=== PATIENT | female | born 1990 | race Caucasian/White ===

== ENCOUNTER 2017-01-21 13:33 | Emergency (ER) | payer MEDICARE, OTHER ==
[~2017-01-21] VITALS: Ht 162.6 cm; Wt 54.4 kg
[~2017-01-21 13:33] MED LIST: ALPR1TAB2 PO
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
[2017-01-21 14:12] LABS: BASOPHILS # (AUTO) 0.1 /CMM (0.0-0.2); BASOPHILS % (AUTO) 0.7 % (0.0-2.0); EOSINOPHILS # (AUTO) 0.1 /CMM (0.0-0.7); EOSINOPHILS % (AUTO) 0.8 % (0.0-6.0); HEMATOCRIT 35 % (33-45); LYMPHOCYTES # (AUTO) 2.2 /CMM (0.8-4.8); LYMPHOCYTES % (AUTO) 20.4 % (20.0-44.0); MEAN CORPUSCULAR HEMOGLOBIN 32 PG (26.0-33.0); MEAN CORPUSCULAR HGB CONC 35 g/dl (31.0-36.0); MEAN CORPUSCULAR VOLUME 93 fL (82-100); MONOCYTES # (AUTO) 0.8 /CMM (0.1-1.30); MONOCYTES % (AUTO) 7.4 % (2.0-12.0); NEUTROPHILS # (AUTO) 7.4 /CMM (1.8-8.9); NEUTROPHILS % (AUTO) 70.7 % (43.0-81.0); PLATELET COUNT (AUTO) 256 /CMM (150-450); RDW COEFFICIENT OF VARIATION 13.3 (11.5-15.0); RED BLOOD CELL COUNT(AUTO) 3.72 MIL/uL (4.0-5.2); WHITE BLOOD COUNT (AUTO) 10.6 K/uL (4.3-11.0)
[2017-01-21 14:22] LABS: CALCIUM, SERUM 8.4 mg/dL (8.5-10.1); CARBON DIOXIDE 29 mmol/L (21-32); CHLORIDE 105 mmol/L (98-107); CREATININE 0.7 mg/dL (0.6-1.3); GLUCOSE 103 mg/dL (74-106); POTASSIUM 4.1 mmol/L (3.5-5.1); SODIUM SERUM 141 mmol/L (136-145); UREA NITROGEN, BLOOD 7 mg/dL (7-18)
[2017-01-21 14:25] LABS: INR 0.97 (0.87-1.13); PROTHROMBIN TIME 10.1 SECS (9.5-12.7)
--- NOTE | 2017-01-21 14:26 | NUR ---
PT COMBATIVE, REFUSING CT SCANS. DR. CASTILLO & DR. GARCIA ARE AWARE.
[2017-01-21 14:28] LABS: ALANINE AMINOTRANSFERASE 27 U/L (12-78); ALBUMIN 3.7 g/dL (3.4-5.0); ALCOHOL, BLOOD < 3 mg/dL (0-0); ALKALINE PHOSPHATASE 43 U/L (46-116); ASPARTATE AMINOTRANSFERASE 53 U/L (15-37); BILIRUBIN,TOTAL 0.2 mg/dL (0.2-1.0); TOTAL PROTEIN, SERUM 6.6 g/dL (6.4-8.2)
--- NOTE | 2017-01-21 14:29 | NUR ---
BECCA OFFICERS AT BS INTERVIEWING PT.
[2017-01-21] MEDS ORDERED: IV SET PRIMARY PUMP SET 1 EA INFUS.SET MC ONE (16:17)
[2017-01-21] MEDS ORDERED: IV NS 0.9% 1,000 ML ONE (16:17)
[2017-01-21] MEDS ORDERED: IV NS 0.9% 1,000 ML BAG IV ONE (16:30)
--- NOTE | 2017-01-21 16:30 | NUR ---
DR. CASTILLO AT BS AND UPDATED PT'S MOTHER FOR POC.
[2017-01-21] MEDS ORDERED: IV NS 0.9% 250 ML IV ONE (16:31)
[2017-01-21] MEDS ORDERED: CT SWABBABLE VALVE TRANS SET 1 EA INFUS.SET MC ONE (16:31)
[2017-01-21] MEDS ORDERED: IOHEXOL-350 100 ML VIAL IV ONE (16:31)
--- NOTE | 2017-01-21 16:44 | NUR ---
PT TAKEN TO CT.
--- NOTE | 2017-01-21 17:45 | NUR ---
IV removed. Catheter intact and site benign. Pressure and 4x4 applied to site. No bleeding noted.
--- NOTE | 2017-01-21 18:10 | NUR ---
MARKOS RN NOCTURNIST PHYSICIAN AT FOR EVALUATION.
--- NOTE | 2017-01-21 18:15 | NUR ---
Patient discharged to home in stable condition. Written and verbal after care instructions given. Patient verbalizes understanding of instruction.
--- NOTE | 2017-01-21 18:20 | NUR ---
PT PICKED UP BY ROOMMATE AND WILL BE DRIVING HER HOME.
[2017-01-21 18:34] VITALS: BP 101/56
== END 2017-01-21 18:35 | disposition home or self-care (01) ==
LOC: ER 13:35
DX: M25.512 Pain in left shoulder (principal); F10.129 Alcohol abuse with intoxication, unspecified; R47.81 Slurred speech; F41.9 Anxiety disorder, unspecified; G89.29 Other chronic pain; I42.9 Cardiomyopathy, unspecified; Z86.718 Personal history of other venous thrombosis and embolism; Z88.8 Allergy status to other drugs, medicaments and biological substances; Z88.5 Allergy status to narcotic agent; F17.200 Nicotine dependence, unspecified, uncomplicated
CPT/HCPCS: 36415; 70450-TC; 71260-TC; 72125-TC; 72193-TC; 74160-TC; 80048-TC; 80076-TC; 80305; 84703-TC; 85025-TC; 85730-TC; 86850-TC; A4606; A6402; G0480; J7030; J7050; L0172; Q9967; Z7610